=== PATIENT | female | born 1970 | race Asian ===

== ENCOUNTER → 2017-01-21 | Outpatient (CLI) | payer MEDICARE, OTHER ==
[~2017-01-21] MED LIST: ALBUTEROL17 GM INH; COREG PO; LISINOPRIL PO; LOPRESSOR PO; NORVASC PO; RENAGEL403 MG PO; TAMIFLU75 MG PO; WALGREENS
[2017-01-21 10:43] LABS: BASOPHIL% 0.2 % (0-2.5); HEMATOCRIT 25.6 % (35.0-45.0); HEMOGLOBIN 8.5 gm/dL (12.0-16.0); LYMPHOCYTE% 0.2 % (17.0-45.0); MEAN CORPUSCULAR HGB CONC 33.3 g/dL (30-36); MEAN PLATELET VOLUME 7.4 FL (6.5-11.5); MONOCYTE# 0.2 X10e3 (0-1.0); MONOCYTE% 3.7 % (3.0-12.0); NEUTROPHIL# 4.6 X10e3 (1.5-7.1); NEUTROPHIL% 95.9 % (40-75); PLATELET COUNT 120 X10e3 (140-420); RED BLOOD COUNT 2.94 X10e (3.90-5.30); RED CELL DISTRIBUTION WIDTH 17.7 % (11.0-15.5); WHITE BLOOD COUNT 4.8 X10e3 (4.0-10.5)
[2017-01-21 10:44] LABS: DIFF IND NO
[2017-01-21 11:47] LABS: ALBUMIN SERUM 3.4 g/dL (3.5-5.0); BUN/CREATININE RATIO 12.4; CALCIUM SERUM 10.2 mg/dL (8.4-10.2); CREATININE SERUM 2.5 mg/dL (0.6-1.4); GLOM FILT RATE Estimated 22.5 mL/min (>60); MAGNESIUM 2.3 mg/dL (1.6-3.0); PHOSPHOROUS 2.1 mg/dL (2.5-4.6); POTASSIUM 4.5 mmol/L (3.5-5.1); PROTEIN TOTAL SERUM 6.7 g/dL (6.0-8.3)
[2017-01-21 14:16] LABS: HEP B VIRUS DNA - VIRAL LOAD REFERENCE
[2017-01-22 16:28] LABS: HEP B SURFACE AG Nonreactive (Nonreactive)
== END | disposition home or self-care (01) ==
LOC: CTPL 09:45
PROVIDERS: Surgery
DX: Z48.22 Encounter for aftercare following kidney transplant (principal); T45.1X1D Poisoning by antineoplastic and immunosuppressive drugs, accidental (unintentional), subsequent encounter; E83.30 Disorder of phosphorus metabolism, unspecified; E83.40 Disorders of magnesium metabolism, unspecified; B18.1 Chronic viral hepatitis B without delta-agent; Z79.899 Other long term (current) drug therapy
CPT/HCPCS: 80053; 80197; 82465; 83735; 84100; 84478; 85025; 87340; 87517

== ENCOUNTER → 2017-01-24 | Outpatient (CLI) | payer MEDICARE, OTHER ==
[2017-01-24 10:58] LABS: HEMATOCRIT 25.2 % (35.0-45.0); HEMOGLOBIN 8.6 gm/dL (12.0-16.0); MEAN CELL VOLUME 85.2 FL (83-96); MEAN CORPUSCULAR HEMOGLOBIN 28.9 PG (28-34); MEAN CORPUSCULAR HGB CONC 33.9 g/dL (30-36); MEAN PLATELET VOLUME 7.1 FL (6.5-11.5); RED BLOOD COUNT 2.96 X10e (3.90-5.30); RED CELL DISTRIBUTION WIDTH 18.1 % (11.0-15.5); WHITE BLOOD COUNT 6.9 X10e3 (4.0-10.5)
[2017-01-24 11:01] LABS: URINE APPEARANCE CLEAR; URINE BILIRUBIN NEG (NEG); URINE BLOOD 2+ (NEG); URINE COLOR DK YELLOW; URINE GLUCOSE NEG (NEG); URINE KETONE NEG (NEG); URINE LEUKOCYTE ESTERASE 1+ (NEG); URINE NITRATE NEG (NEG); URINE PROTEIN 1+ (NEG); URINE SPECIFIC GRAVITY 1.019 (1.003-1.035)
[2017-01-24 11:04] LABS: U HYALINE CASTS AUWI 0-2 /[LPF]; URINE BACTERIA AUWI NEG (NEGATIVE); URINE SQUAMOUS EPITHELIAL CELL OCC /[HPF]
[2017-01-24 11:23] LABS: CREATININE,RANDOM URINE 165 mg/dL; TOTAL PROTEIN,RANDOM URINE 65 mg/dl (<10)
[2017-01-24 11:50] LABS: ALBUMIN SERUM 3.4 g/dL (3.5-5.0); BILIRUBIN,TOTAL 1.9 mg/dL (0.2-2.0); BUN/CREATININE RATIO 8.57; CALCIUM SERUM 10.5 mg/dL (8.4-10.2); CREATININE SERUM 2.1 mg/dL (0.6-1.4); GLOM FILT RATE Estimated 27.7 mL/min (>60); PHOSPHOROUS 1.4 mg/dL (2.5-4.6); POTASSIUM 5.3 mmol/L (3.5-5.1); PROTEIN TOTAL SERUM 6.7 g/dL (6.0-8.3)
[2017-01-24 12:04] LABS: URINE SOURCE CLEAN CATCH
== END | disposition home or self-care (01) ==
LOC: CTPL 10:02
PROVIDERS: Surgery
DX: Z48.22 Encounter for aftercare following kidney transplant (principal); T45.1X1D Poisoning by antineoplastic and immunosuppressive drugs, accidental (unintentional), subsequent encounter; E83.40 Disorders of magnesium metabolism, unspecified; E83.30 Disorder of phosphorus metabolism, unspecified; B18.1 Chronic viral hepatitis B without delta-agent; Z79.899 Other long term (current) drug therapy
CPT/HCPCS: 36415; 80053; 80197; 81003; 82570; 83735; 84100; 84156; 85027

== ENCOUNTER → 2017-01-28 | Outpatient (CLI) | payer MEDICARE, OTHER ==
[2017-01-28 10:42] LABS: BASOPHIL% 0.5 % (0-2.5); EOSINOPHIL% 0.2 % (0.0-7.0); HEMATOCRIT 26.3 % (35.0-45.0); HEMOGLOBIN 8.5 gm/dL (12.0-16.0); LYMPHOCYTE% 0.4 % (17.0-45.0); MEAN CELL VOLUME 85.7 FL (83-96); MEAN CORPUSCULAR HEMOGLOBIN 27.8 PG (28-34); MEAN CORPUSCULAR HGB CONC 32.4 g/dL (30-36); MEAN PLATELET VOLUME 6.8 FL (6.5-11.5); MONOCYTE# 0.3 X10e3 (0-1.0); MONOCYTE% 4.2 % (3.0-12.0); NEUTROPHIL% 94.7 % (40-75); PLATELET COUNT 185 X10e3 (140-420); RED BLOOD COUNT 3.07 X10e (3.90-5.30); RED CELL DISTRIBUTION WIDTH 17.8 % (11.0-15.5); WHITE BLOOD COUNT 6.3 X10e3 (4.0-10.5)
[2017-01-28 10:44] LABS: DIFF IND NO
[2017-01-28 11:05] LABS: ALBUMIN SERUM 3.5 g/dL (3.5-5.0); BILIRUBIN,TOTAL 1.4 mg/dL (0.2-2.0); BUN/CREATININE RATIO 7.14; CREATININE SERUM 2.1 mg/dL (0.6-1.4); GLOM FILT RATE Estimated 27.7 mL/min (>60); MAGNESIUM 1.9 mg/dL (1.6-3.0); PHOSPHOROUS 1.9 mg/dL (2.5-4.6); PROTEIN TOTAL SERUM 7.1 g/dL (6.0-8.3)
[2017-01-28 11:12] LABS: POTASSIUM 5.6 mmol/L (3.5-5.1)
== END | disposition home or self-care (01) ==
LOC: CTPL 10:00
PROVIDERS: Surgery
DX: Z48.22 Encounter for aftercare following kidney transplant (principal); T45.1X1D Poisoning by antineoplastic and immunosuppressive drugs, accidental (unintentional), subsequent encounter; B18.1 Chronic viral hepatitis B without delta-agent; E83.40 Disorders of magnesium metabolism, unspecified; E83.30 Disorder of phosphorus metabolism, unspecified; Z79.899 Other long term (current) drug therapy
CPT/HCPCS: 36415; 80053; 80197; 83735; 84100; 85025

== ENCOUNTER → 2017-01-31 | Outpatient (CLI) | payer MEDICARE, OTHER ==
[2017-01-31 10:25] LABS: BASOPHIL% 0.3 % (0-2.5); EOSINOPHIL% 0.7 % (0.0-7.0); HEMATOCRIT 26.1 % (35.0-45.0); HEMOGLOBIN 8.8 gm/dL (12.0-16.0); LYMPHOCYTE% 0.3 % (17.0-45.0); MEAN CORPUSCULAR HEMOGLOBIN 28.4 PG (28-34); MEAN CORPUSCULAR HGB CONC 33.8 g/dL (30-36); MEAN PLATELET VOLUME 6.9 FL (6.5-11.5); MONOCYTE# 0.2 X10e3 (0-1.0); MONOCYTE% 4.5 % (3.0-12.0); NEUTROPHIL# 3.7 X10e3 (1.5-7.1); NEUTROPHIL% 94.2 % (40-75); PLATELET COUNT 167 X10e3 (140-420); RED BLOOD COUNT 3.11 X10e (3.90-5.30); RED CELL DISTRIBUTION WIDTH 18.3 % (11.0-15.5); URINE APPEARANCE CLEAR; URINE BILIRUBIN NEG (NEG); URINE BLOOD 1+ (NEG); URINE COLOR YELLOW; URINE GLUCOSE NEG (NEG); URINE KETONE NEG (NEG); URINE LEUKOCYTE ESTERASE 2+ (NEG); URINE NITRATE NEG (NEG); URINE PH 5.5 (5-8); URINE PROTEIN NEG (NEG); URINE SPECIFIC GRAVITY 1.013 (1.003-1.035)
[2017-01-31 10:26] LABS: DIFF IND NO
[2017-01-31 10:47] LABS: CREATININE,RANDOM URINE 98 mg/dL; TOTAL PROTEIN,RANDOM URINE 21 mg/dl (<10)
[2017-01-31 10:48] LABS: ALBUMIN SERUM 3.5 g/dL (3.5-5.0); BILIRUBIN,TOTAL 1.5 mg/dL (0.2-2.0); BUN/CREATININE RATIO 6.66; CALCIUM SERUM 11.1 mg/dL (8.4-10.2); CREATININE SERUM 2.1 mg/dL (0.6-1.4); GLOM FILT RATE Estimated 27.7 mL/min (>60); MAGNESIUM 1.9 mg/dL (1.6-3.0); PHOSPHOROUS 1.9 mg/dL (2.5-4.6); POTASSIUM 5.4 mmol/L (3.5-5.1)
[2017-01-31 10:49] LABS: CHOLESTEROL 196 mg/dL (0-200); TRIGLYCERIDES 136 mg/dL (10-160)
[2017-01-31 11:11] LABS: URINE BACTERIA AUWI 1+ (NEGATIVE)
== END | disposition home or self-care (01) ==
LOC: CTPL 09:31
PROVIDERS: Surgery
DX: Z48.22 Encounter for aftercare following kidney transplant (principal); T45.1X1D Poisoning by antineoplastic and immunosuppressive drugs, accidental (unintentional), subsequent encounter; E83.40 Disorders of magnesium metabolism, unspecified; E83.30 Disorder of phosphorus metabolism, unspecified; B97.7 Papillomavirus as the cause of diseases classified elsewhere; Z79.899 Other long term (current) drug therapy
CPT/HCPCS: 36415; 80053; 80197; 81003; 82465; 82570; 83735; 84100; 84156; 84478; 85025

== ENCOUNTER → 2017-02-04 | Outpatient (CLI) | payer MEDICARE, OTHER ==
[2017-02-04 10:50] LABS: BASOPHIL% 0.2 % (0-2.5); EOSINOPHIL# 0.1 X10e3 (0-0.7); EOSINOPHIL% 1.3 % (0.0-7.0); HEMATOCRIT 28.9 % (35.0-45.0); HEMOGLOBIN 9.6 gm/dL (12.0-16.0); LYMPHOCYTE% 0.2 % (17.0-45.0); MEAN CELL VOLUME 83.5 FL (83-96); MEAN CORPUSCULAR HEMOGLOBIN 27.7 PG (28-34); MEAN CORPUSCULAR HGB CONC 33.2 g/dL (30-36); MEAN PLATELET VOLUME 7.1 FL (6.5-11.5); MONOCYTE# 0.2 X10e3 (0-1.0); MONOCYTE% 5.3 % (3.0-12.0); NEUTROPHIL# 3.6 X10e3 (1.5-7.1); PLATELET COUNT 180 X10e3 (140-420); RED BLOOD COUNT 3.46 X10e (3.90-5.30); RED CELL DISTRIBUTION WIDTH 18.4 % (11.0-15.5); WHITE BLOOD COUNT 3.9 X10e3 (4.0-10.5)
[2017-02-04 10:52] LABS: DIFF IND NO
[2017-02-04 11:29] LABS: ALBUMIN SERUM 3.8 g/dL (3.5-5.0); BILIRUBIN,TOTAL 0.9 mg/dL (0.2-2.0); CALCIUM SERUM 11.1 mg/dL (8.4-10.2); GLOM FILT RATE Estimated 29.4 mL/min (>60); MAGNESIUM 1.9 mg/dL (1.6-3.0); PHOSPHOROUS 1.9 mg/dL (2.5-4.6); PROTEIN TOTAL SERUM 7.5 g/dL (6.0-8.3)
[2017-02-04 12:22] LABS: POTASSIUM 5.5 mmol/L (3.5-5.1)
== END | disposition home or self-care (01) ==
LOC: CLAB 10:11 → CTPL 10:11
PROVIDERS: Surgery
DX: Z48.22 Encounter for aftercare following kidney transplant (principal); T45.1X1D Poisoning by antineoplastic and immunosuppressive drugs, accidental (unintentional), subsequent encounter; E83.40 Disorders of magnesium metabolism, unspecified; E83.30 Disorder of phosphorus metabolism, unspecified; Z79.899 Other long term (current) drug therapy
CPT/HCPCS: 36415; 80053; 80197; 82465; 83735; 84100; 84478; 85025; 87799

== ENCOUNTER → 2017-02-07 | Outpatient (CLI) | payer MEDICARE, OTHER ==
[2017-02-07 10:21] LABS: BASOPHIL% 0.5 % (0-2.5); EOSINOPHIL# 0.1 X10e3 (0-0.7); EOSINOPHIL% 1.7 % (0.0-7.0); HEMATOCRIT 28.8 % (35.0-45.0); HEMOGLOBIN 9.7 gm/dL (12.0-16.0); LYMPHOCYTE% 0.2 % (17.0-45.0); MEAN CELL VOLUME 82.9 FL (83-96); MEAN CORPUSCULAR HEMOGLOBIN 27.9 PG (28-34); MEAN CORPUSCULAR HGB CONC 33.7 g/dL (30-36); MEAN PLATELET VOLUME 7.8 FL (6.5-11.5); MONOCYTE# 0.2 X10e3 (0-1.0); MONOCYTE% 5.2 % (3.0-12.0); NEUTROPHIL# 3.8 X10e3 (1.5-7.1); NEUTROPHIL% 92.4 % (40-75); PLATELET COUNT 169 X10e3 (140-420); RED BLOOD COUNT 3.47 X10e (3.90-5.30); RED CELL DISTRIBUTION WIDTH 18.3 % (11.0-15.5); WHITE BLOOD COUNT 4.1 X10e3 (4.0-10.5)
[2017-02-07 10:23] LABS: DIFF IND NO
[2017-02-07 10:28] LABS: URINE APPEARANCE CLOUDY; URINE BILIRUBIN NEG (NEG); URINE BLOOD 1+ (NEG); URINE COLOR YELLOW; URINE GLUCOSE NEG (NEG); URINE KETONE NEG (NEG); URINE LEUKOCYTE ESTERASE 2+ (NEG); URINE NITRATE NEG (NEG); URINE PROTEIN 1+ (NEG)
[2017-02-07 10:30] LABS: URINE BACTERIA AUWI 1+ (NEGATIVE); URINE SQUAMOUS EPITHELIAL CELL FEW /[HPF]
[2017-02-07 10:43] LABS: URINE SOURCE CLEAN CATCH
[2017-02-07 10:48] LABS: URINE YEAST PRESENT
[2017-02-07 10:59] LABS: CREATININE,RANDOM URINE 157 mg/dL; TOTAL PROTEIN,RANDOM URINE 48 mg/dl (<10)
[2017-02-07 11:00] LABS: ALBUMIN SERUM 3.7 g/dL (3.5-5.0); BUN/CREATININE RATIO 9.33; CALCIUM SERUM 10.6 mg/dL (8.4-10.2); CREATININE SERUM 1.5 mg/dL (0.6-1.4); GLOM FILT RATE Estimated 41.7 mL/min (>60); MAGNESIUM 1.7 mg/dL (1.6-3.0); PHOSPHOROUS 1.6 mg/dL (2.5-4.6); POTASSIUM 5.3 mmol/L (3.5-5.1); PROTEIN TOTAL SERUM 7.1 g/dL (6.0-8.3)
== END | disposition home or self-care (01) ==
LOC: CLAB 09:28
PROVIDERS: Surgery
DX: Z48.22 Encounter for aftercare following kidney transplant (principal); T45.1X1D Poisoning by antineoplastic and immunosuppressive drugs, accidental (unintentional), subsequent encounter; E83.40 Disorders of magnesium metabolism, unspecified; E83.30 Disorder of phosphorus metabolism, unspecified; Z79.899 Other long term (current) drug therapy
CPT/HCPCS: 36415; 80053; 80197; 81003; 82570; 83735; 84100; 84156; 85025

== ENCOUNTER → 2017-02-14 | Outpatient (CLI) | payer MEDICARE, OTHER ==
[2017-02-14 11:03] LABS: BASOPHIL% 0.3 % (0-2.5); EOSINOPHIL# 0.1 X10e3 (0-0.7); EOSINOPHIL% 1.5 % (0.0-7.0); HEMATOCRIT 26.8 % (35.0-45.0); HEMOGLOBIN 8.7 gm/dL (12.0-16.0); LYMPHOCYTE% 0.3 % (17.0-45.0); MEAN CELL VOLUME 83.4 FL (83-96); MEAN CORPUSCULAR HEMOGLOBIN 27.2 PG (28-34); MEAN CORPUSCULAR HGB CONC 32.6 g/dL (30-36); MEAN PLATELET VOLUME 8.5 FL (6.5-11.5); MONOCYTE# 0.3 X10e3 (0-1.0); MONOCYTE% 7.5 % (3.0-12.0); NEUTROPHIL# 3.4 X10e3 (1.5-7.1); NEUTROPHIL% 90.4 % (40-75); PLATELET COUNT 131 X10e3 (140-420); RED BLOOD COUNT 3.21 X10e (3.90-5.30); RED CELL DISTRIBUTION WIDTH 18.6 % (11.0-15.5); WHITE BLOOD COUNT 3.8 X10e3 (4.0-10.5)
[2017-02-14 11:04] LABS: DIFF IND NO
[2017-02-14 11:17] LABS: URINE APPEARANCE CLEAR; URINE BILIRUBIN NEG (NEG); URINE BLOOD NEG (NEG); URINE COLOR YELLOW; URINE GLUCOSE NEG (NEG); URINE KETONE NEG (NEG); URINE LEUKOCYTE ESTERASE TRACE (NEG); URINE NITRATE NEG (NEG); URINE PROTEIN NEG (NEG); URINE SPECIFIC GRAVITY 1.024 (1.003-1.035); URINE UROBILINOGEN 0.2 MG/DL (NEG)
[2017-02-14 11:19] LABS: U HYALINE CASTS AUWI 0-2 /[LPF]; URBCS1 AUWI 0-2 /[HPF] (0-2); URINE BACTERIA AUWI NEG (NEGATIVE); URINE SQUAMOUS EPITHELIAL CELL OCC /[HPF]
[2017-02-14 11:21] LABS: URINE SOURCE CLEAN CATCH
[2017-02-14 11:43] LABS: ALBUMIN SERUM 3.9 g/dL (3.5-5.0); BILIRUBIN,TOTAL 0.9 mg/dL (0.2-2.0); BUN/CREATININE RATIO 15.71; CALCIUM SERUM 10.8 mg/dL (8.4-10.2); CREATININE SERUM 1.4 mg/dL (0.6-1.4); GLOM FILT RATE Estimated 45.3 mL/min (>60); MAGNESIUM 1.6 mg/dL (1.6-3.0); PHOSPHOROUS 1.3 mg/dL (2.5-4.6); POTASSIUM 5.4 mmol/L (3.5-5.1); PROTEIN TOTAL SERUM 7.1 g/dL (6.0-8.3)
[2017-02-14 11:58] LABS: CREATININE,RANDOM URINE 185 mg/dL; TOTAL PROTEIN,RANDOM URINE 22 mg/dl (<10)
== END | disposition home or self-care (01) ==
LOC: CTPL 10:09
PROVIDERS: Surgery
DX: Z48.22 Encounter for aftercare following kidney transplant (principal); T45.1X1D Poisoning by antineoplastic and immunosuppressive drugs, accidental (unintentional), subsequent encounter; E83.40 Disorders of magnesium metabolism, unspecified; E83.30 Disorder of phosphorus metabolism, unspecified; B18.1 Chronic viral hepatitis B without delta-agent; Z79.899 Other long term (current) drug therapy
CPT/HCPCS: 36415; 80053; 80197; 81003; 82570; 83735; 84100; 84156; 85025; 87799

== ENCOUNTER → 2017-02-18 | Outpatient (CLI) | payer MEDICARE, OTHER ==
[2017-02-18 10:38] LABS: BASOPHIL% 0.2 % (0-2.5); EOSINOPHIL# 0.1 X10e3 (0-0.7); EOSINOPHIL% 1.5 % (0.0-7.0); HEMATOCRIT 28.2 % (35.0-45.0); HEMOGLOBIN 9.4 gm/dL (12.0-16.0); LYMPHOCYTE% 0.3 % (17.0-45.0); MEAN CELL VOLUME 82.3 FL (83-96); MEAN CORPUSCULAR HEMOGLOBIN 27.4 PG (28-34); MEAN CORPUSCULAR HGB CONC 33.3 g/dL (30-36); MEAN PLATELET VOLUME 8.6 FL (6.5-11.5); MONOCYTE# 0.3 X10e3 (0-1.0); MONOCYTE% 7.1 % (3.0-12.0); NEUTROPHIL# 3.7 X10e3 (1.5-7.1); NEUTROPHIL% 90.9 % (40-75); PLATELET COUNT 127 X10e3 (140-420); RED BLOOD COUNT 3.42 X10e (3.90-5.30); WHITE BLOOD COUNT 4.1 X10e3 (4.0-10.5)
[2017-02-18 10:41] LABS: DIFF IND NO
[2017-02-18 11:47] LABS: ALBUMIN SERUM 4.1 g/dL (3.5-5.0); BILIRUBIN,TOTAL 0.5 mg/dL (0.2-2.0); BUN/CREATININE RATIO 15.71; CALCIUM SERUM 10.7 mg/dL (8.4-10.2); CREATININE SERUM 1.4 mg/dL (0.6-1.4); GLOM FILT RATE Estimated 45.3 mL/min (>60); MAGNESIUM 1.7 mg/dL (1.6-3.0); PHOSPHOROUS 1.5 mg/dL (2.5-4.6); POTASSIUM 4.8 mmol/L (3.5-5.1); PROTEIN TOTAL SERUM 7.7 g/dL (6.0-8.3)
== END | disposition home or self-care (01) ==
LOC: CLAB 10:00
PROVIDERS: Surgery
DX: Z48.22 Encounter for aftercare following kidney transplant (principal); T45.1X1D Poisoning by antineoplastic and immunosuppressive drugs, accidental (unintentional), subsequent encounter; E83.40 Disorders of magnesium metabolism, unspecified; E83.30 Disorder of phosphorus metabolism, unspecified; Z79.899 Other long term (current) drug therapy
CPT/HCPCS: 36415; 80053; 80197; 83735; 84100; 85025

== ENCOUNTER → 2017-02-21 | Outpatient (CLI) | payer MEDICARE, OTHER ==
[2017-02-21 10:59] LABS: URINE APPEARANCE CLEAR; URINE BILIRUBIN NEG (NEG); URINE BLOOD NEG (NEG); URINE COLOR YELLOW; URINE GLUCOSE NEG (NEG); URINE KETONE NEG (NEG); URINE LEUKOCYTE ESTERASE 1+ (NEG); URINE NITRATE NEG (NEG); URINE PROTEIN NEG (NEG); URINE SPECIFIC GRAVITY 1.016 (1.003-1.035); URINE UROBILINOGEN 0.2 MG/DL (NEG)
[2017-02-21 11:01] LABS: BASOPHIL% 0.3 % (0-2.5); EOSINOPHIL# 0.1 X10e3 (0-0.7); HEMATOCRIT 28.5 % (35.0-45.0); HEMOGLOBIN 9.2 gm/dL (12.0-16.0); LYMPHOCYTE% 0.4 % (17.0-45.0); MEAN CELL VOLUME 82.8 FL (83-96); MEAN CORPUSCULAR HEMOGLOBIN 26.8 PG (28-34); MEAN CORPUSCULAR HGB CONC 32.3 g/dL (30-36); MEAN PLATELET VOLUME 8.9 FL (6.5-11.5); MONOCYTE# 0.2 X10e3 (0-1.0); MONOCYTE% 6.1 % (3.0-12.0); NEUTROPHIL# 3.6 X10e3 (1.5-7.1); NEUTROPHIL% 91.2 % (40-75); PLATELET COUNT 122 X10e3 (140-420); RED BLOOD COUNT 3.44 X10e (3.90-5.30); RED CELL DISTRIBUTION WIDTH 19.4 % (11.0-15.5); URINE BACTERIA AUWI 1+ (NEGATIVE); URINE SQUAMOUS EPITHELIAL CELL OCC /[HPF]; WHITE BLOOD COUNT 3.9 X10e3 (4.0-10.5)
[2017-02-21 11:04] LABS: URINE SOURCE CLEAN CATCH
[2017-02-21 11:28] LABS: CREATININE,RANDOM URINE 91 mg/dL; TOTAL PROTEIN,RANDOM URINE 13 mg/dl (<10)
[2017-02-21 11:32] LABS: ALBUMIN SERUM 4.1 g/dL (3.5-5.0); BILIRUBIN,TOTAL 0.7 mg/dL (0.2-2.0); BUN/CREATININE RATIO 13.33; CALCIUM SERUM 10.8 mg/dL (8.4-10.2); CREATININE SERUM 1.2 mg/dL (0.6-1.4); GLOM FILT RATE Estimated 54.5 mL/min (>60); MAGNESIUM 1.6 mg/dL (1.6-3.0); PHOSPHOROUS 1.4 mg/dL (2.5-4.6); POTASSIUM 4.5 mmol/L (3.5-5.1); PROTEIN TOTAL SERUM 7.7 g/dL (6.0-8.3)
[2017-02-21 11:40] LABS: DIFF IND NO
== END | disposition home or self-care (01) ==
LOC: CTPL 10:19
PROVIDERS: Surgery
DX: Z48.22 Encounter for aftercare following kidney transplant (principal); T45.1X1D Poisoning by antineoplastic and immunosuppressive drugs, accidental (unintentional), subsequent encounter; E83.40 Disorders of magnesium metabolism, unspecified; E83.30 Disorder of phosphorus metabolism, unspecified; Z79.899 Other long term (current) drug therapy
CPT/HCPCS: 36415; 80053; 80197; 81003; 82570; 83735; 84100; 84156; 85025